=== PATIENT | female | born 1985 | race Caucasian/White ===

== ENCOUNTER 2017-02-25 10:24 | Emergency (ER) | payer MEDICAID ==
[2017-02-25 10:49] VITALS: BP 148/75
[2017-02-25] MEDS ORDERED: IBUPROFEN 800 MG TABLET PO ONE (11:09)
[2017-02-25] MEDS ORDERED: DIPHENHYDRAMINE HCL 25 MG CAPSULE PO ONE (11:09)
--- NOTE | 2017-02-25 11:24 | ER Document Report ---
HPI - HPI Patient complains to provider of: toe complaint Pain Level: 3 Context: Patient is a 31-year-old female who presents emergency department complaining of right big toe pain. Patient states that she had a blood pain 4 days ago and scratched the top layer of skin off. Admits to itching, pain clear drainage. Denies any surrounding redness or swelling. Has been taking Tylenol for pain relief. Otherwise denies any other medical problems. Denies any fevers or chills. - REPRODUCTIVE Reproductive: DENIES: : - DERM Skin Color: Normal Past Medical History - Social History Smoking Status: Unknown if Ever Smoked Family History: Reviewed & Not Pertinent Patient has suicidal ideation: No Patient has homicidal ideation: No - Past Medical History Cardiac Medical History: Reports: Hx Hypertension Pulmonary Medical History: Reports: Hx Pneumonia Endocrine Medical History: Reports: Hx Diabetes Mellitus Type 2 Renal/ Medical History: Denies: Hx Peritoneal Dialysis GI Medical History: Reports: Hx Gastroesophageal Reflux Disease Musculoskeltal Medical History: Reports Hx Arthritis Psychiatric Medical History: Reports: Hx Anxiety, Hx Bipolar Disorder, Hx Depression Past Surgical History: Reports: Hx Abdominal Surgery - tumor, hernia, Hx Cardiac Catheterization - AND ABLATION (UNSUCCESSFUL) 2006, Hx Section - x2, Hx Cholecystectomy, Hx Gastric Bypass Surgery - 2006, Hx Herniorrhaphy, Hx Tubal Ligation - Immunizations Hx Diphtheria, Pertussis, Tetanus Vaccination: Yes Vertical Provider Document - CONSTITUTIONAL Agree With Documented VS: Yes Exam Limitations: No Limitations General Appearance: WD/WN, No Apparent Distress - INFECTION CONTROL TRAVEL OUTSIDE OF THE [place] IN LAST 30 DAYS: No - RESPIRATORY O2 Sat by Pulse Oximetry: 100 - CARDIOVASCULAR Pulses: Normal: Dorsalis pedis - normal cap refill - MUSCULOSKELETAL/EXTREMETIES Musculoskeletal/Extremeties: MAEW, FROM, Non-Tender, No Edema - NEURO Level of Consciousness: Awake, Alert, Appropriate Motor/Sensory: No Motor Deficit, No Sensory Deficit - DERM Integumentary: Warm, Dry, No Rash Adult Front & Back Diagram: 1 - 2cm round scab on the top of the left toe without erythema, purulent drainage, induration Course - Re-evaluation Re-evalutation: 02/25/17 11:21 Is a 21-year-old who is hemodynamic stable, no distress afebrile. No evidence of cellulitis, abscess of the toe. Can treat with [id number] Motrin, Benadryl and Neosporin. Can follow-up with primary care. - Vital Signs Vital signs: Temp Pulse Resp BP Pulse Ox 98.5 F 86 18 148/75 H 100 02/25/17 10:48 02/25/17 10:48 02/25/17 10:48 02/25/17 10:48 02/25/17 10:48 Discharge - Discharge Clinical Impression: Bug bite Qualifiers: Encounter type: initial encounter Qualified Code(s): W57.XXXA - Bitten or stung by nonvenomous insect and other nonvenomous arthropods, initial encounter Condition: Good Disposition: HOME, SELF-CARE Instructions: Insect Bites ([facility]), Antihistamines ([facility]), Use of Over-The- Counter Ibuprofen ([facility]) Forms: Elevated Blood Pressure
== END 2017-02-25 11:51 | disposition home or self-care (01) ==
LOC: ER 10:24
DX: T14.8 Other injury of unspecified body region (principal); W57.XXXA Bitten or stung by nonvenomous insect and other nonvenomous arthropods, initial encounter; M79.674 Pain in right toe(s); E11.9 Type 2 diabetes mellitus without complications; I10 Essential (primary) hypertension
CPT/HCPCS: 99283; J3490 ×2

== ENCOUNTER 2017-05-19 12:24 | Emergency (ER) | payer MEDICAID ==
[2017-05-19 12:29] VITALS: BP 136/75
[2017-05-19] MEDS ORDERED: ALPRAZOLAM 0.25 MG TABLET PO ONE (12:37)
--- NOTE | 2017-05-19 12:46 | ER Document Report ---
ED Psych Disorder / Suicide - General Chief Complaint: Anxiety Stated Complaint: FAST HEART RATE,NAUSEA Time Seen by Provider: 05/19/17 12:37 Mode of Arrival: Ambulatory Information source: Patient TRAVEL OUTSIDE OF THE [place] IN LAST 30 DAYS: No - HPI Patient complains to provider of: Other Onset: This morning - pt states she is having a panic attack and is requesting xanax here as she is out of meds. She denies SI or HI - Related Data Allergies/Adverse Reactions: latex [Latex] Allergy (Severe, Verified 05/19/17 12:28) rash and swelling adhesive tape [Adhesive Tape] Allergy (Verified 05/19/17 12:28) rash and blister morphine [Morphine] Allergy (Verified 05/19/17 12:28) Past Medical History - General Information source: Patient - Social History Smoking Status: Current Every Day Smoker Cigarette use (# per day): Yes Chew tobacco use (# tins/day): No Smoking Education Provided: Yes Frequency of alcohol use: None Drug Abuse: None Family History: Reviewed & Not Pertinent - Past Medical History Cardiac Medical History: Reports: Hx Hypertension Pulmonary Medical History: Reports: Hx Pneumonia Endocrine Medical History: Reports: Hx Diabetes Mellitus Type 2 Renal/ Medical History: Denies: Hx Peritoneal Dialysis GI Medical History: Reports: Hx Gastroesophageal Reflux Disease Musculoskeltal Medical History: Reports Hx Arthritis Psychiatric Medical History: Reports: Hx Anxiety, Hx Bipolar Disorder, Hx Depression Past Surgical History: Reports: Hx Abdominal Surgery - tumor, hernia, Hx Cardiac Catheterization - AND ABLATION (UNSUCCESSFUL) 2006, Hx Section - x2, Hx Cholecystectomy, Hx Gastric Bypass Surgery - 2006, Hx Herniorrhaphy, Hx Tubal Ligation - Immunizations Hx Diphtheria, Pertussis, Tetanus Vaccination: Yes Review of Systems - Review of Systems Constitutional: No symptoms reported EENT: No symptoms reported Cardiovascular: No symptoms reported Respiratory: No symptoms reported Gastrointestinal: No symptoms reported Neurological/Psychological: See HPI, Anxiety -: Yes All other systems reviewed and negative Physical Exam - Vital signs Vitals: Temp Pulse Resp BP Pulse Ox 98.5 F 74 18 136/75 H 98 05/19/17 12:28 05/19/17 12:28 05/19/17 12:28 05/19/17 12:28 05/19/17 12:28 - General General appearance: Appears well In distress: None - HEENT Head: Normocephalic Pharynx: Normal Neck: Normal - Respiratory Respiratory status: No respiratory distress Breath sounds: Normal - Cardiovascular Rhythm: Regular Heart sounds: Normal auscultation - Abdominal Inspection: Normal Bowel sounds: Normal - Neurological Neuro grossly intact: Yes Cognition: Normal Orientation: AAOx4 - Psychological Associated symptoms: Normal affect, Anxious Course - Re-evaluation Re-evalutation: 05/19/17 12:41 pt felt better after xanax - will go home with friend - Vital Signs Vital signs: Temp Pulse Resp BP Pulse Ox 98.5 F 74 18 136/75 H 98 05/19/17 12:28 05/19/17 12:28 05/19/17 12:28 05/19/17 12:28 05/19/17 12:28 Discharge - Discharge Clinical Impression: Anxiety Condition: Stable Disposition: HOME, SELF-CARE Instructions: Anxiety ([facility]) Additional Instructions: rest, continue current meds, return if worse Referrals: SIXTO HURT MD [ACTIVE STAFF] - Follow up as needed
== END 2017-05-19 12:45 | disposition home or self-care (01) ==
LOC: ER 12:24
DX: F41.9 Anxiety disorder, unspecified (principal); R00.2 Palpitations; R11.0 Nausea; Z79.899 Other long term (current) drug therapy; F17.210 Nicotine dependence, cigarettes, uncomplicated
CPT/HCPCS: 99283; J3490

== ENCOUNTER 2017-06-16 00:06 | Emergency (ER) | payer MEDICAID, OTHER ==
--- NOTE | 2017-06-16 01:20 | ER Document Report ---
HPI - HPI Pain Level: Denies Notes: Pt with a h/o anxiety presents to the ED c/o needing her anxiety medication, xanax, because she cannot find her current script. The last time she took the medication was 2 days ago. Pt states that she has not been taking her medication as prescribed as there are days she needs it and others that she doesn't. She also does not take the prescribed amount of 1 tab BID prn anxiety according to how the scripts have been written historically. Pt states that she is not due for a refill for 1 more week. Pt sees Tammie Peck for her psych medication(s). Pt has no other concerns or complaints. No SI/HI. Denies any headache, fever, head injury, neck pain, changes in vision/speech/ mentation/hearing, URI, sore throat, chest pain, palpitations, syncope, cough, shortness of breath, wheeze, dyspnea, abdominal pain, nausea/vomiting/diarrhea, urinary retention, dysuria, hematuria, or rash. - ROS Notes: REVIEW OF SYSTEMS: CONSTITUTIONAL : Denies fever, chills, or sweats. Denies recent illness. EENT: Denies eye, ear, throat, or mouth pain or symptoms. Denies nasal or sinus congestion or discharge. Denies throat, tongue, or mouth swelling or difficulty swallowing. CARDIOVASCULAR: Denies chest pain. Denies palpitations or racing or irregular heart beat. Denies ankle edema. RESPIRATORY: Denies cough, cold, or chest congestion. Denies shortness of breath, difficulty breathing, or wheezing. GASTROINTESTINAL: Denies abdominal pain or distention. Denies nausea, vomiting , or diarrhea. Denies blood in vomitus, stools, or per rectum. Denies black, tarry stools. Denies constipation. GENITOURINARY: Denies difficulty urinating, painful urination, burning, frequency, blood in urine, or discharge. MUSCULOSKELETAL: Denies back or neck pain or stiffness. Denies joint pain or swelling. SKIN: Denies rash, lesions or sores. NEUROLOGICAL: Denies confusion or altered mental status. Denies passing out or loss of consciousness. Denies dizziness or lightheadedness. Denies headache. Denies weakness or paralysis or loss of use of either side. Denies problems with gait or speech. Denies sensory loss, numbness, or tingling. Psych: see hpi. ALL OTHER SYSTEMS REVIEWED AND NEGATIVE. Dictation was performed using [employer] voice recognition software - REPRODUCTIVE Reproductive: DENIES: : - DERM Skin Color: Normal, [place] Past Medical History - Social History Smoking Status: Never Smoker Family History: Reviewed & Not Pertinent - Past Medical History Cardiac Medical History: Reports: Hx Hypertension Pulmonary Medical History: Reports: Hx Pneumonia Endocrine Medical History: Reports: Hx Diabetes Mellitus Type 2 Renal/ Medical History: Denies: Hx Peritoneal Dialysis GI Medical History: Reports: Hx Gastroesophageal Reflux Disease Musculoskeltal Medical History: Reports Hx Arthritis Psychiatric Medical History: Reports: Hx Anxiety, Hx Bipolar Disorder, Hx Depression Past Surgical History: Reports: Hx Abdominal Surgery - tumor, hernia, Hx Cardiac Catheterization - AND ABLATION (UNSUCCESSFUL) 2006, Hx Section - x2, Hx Cholecystectomy, Hx Gastric Bypass Surgery - 2007, Hx Herniorrhaphy, Hx Tubal Ligation - Immunizations Hx Diphtheria, Pertussis, Tetanus Vaccination: Yes Vertical Provider Document - CONSTITUTIONAL Agree With Documented VS: Yes Notes: PHYSICAL EXAMINATION: GENERAL: Well-appearing, well-nourished and in no acute distress. Obese. HEAD: Atraumatic, normocephalic. EYES: Pupils equal round and reactive to light, extraocular movements intact, sclera anicteric, conjunctiva are normal. NECK: Normal range of motion, supple without lymphadenopathy LUNGS: Breath sounds clear to auscultation bilaterally and equal. No wheezes rales or rhonchi. HEART: Regular rate and rhythm without murmurs, rubs, gallops. Extremities: No cyanosis, clubbing, or edema b/l. Peripheral pulses 2+. Capillary refill less than 3 seconds. NEUROLOGICAL: Cranial nerves grossly intact. Normal speech, normal gait. Normal sensory, motor exams PSYCH: Normal mood, normal affect. SKIN: Warm, Dry, normal turgor, no rashes or lesions noted. - INFECTION CONTROL TRAVEL OUTSIDE OF THE [place] IN LAST 30 DAYS: No - RESPIRATORY O2 Sat by Pulse Oximetry: 96 Course - Re-evaluation Re-evalutation: 06/16/17 01:18 Patient is an afebrile, well-hydrated, 31-year-old female who presents the ED with anxiety. Vitals are stable. PE is otherwise unremarkable. Patient told me that she needs a refill in 1 week but according to the [facility], she is due for a refill on June 18. There is a pattern over the last few months that patient has needed to get her medication refilled a few days earlier each time. I have a suspicion that patient is not taking her medications as directed. I also feel that the patient should be on a once a day SSRI/SNRI so that she is not taking as much xanax as is being prescribed. Advised patient that scripts like these do not normally get filled by the ED. I will send her with a Rx for 2 tabs of her xanax that will get her until she can call her PCM tomorrow and see what they can/want to do. Pt has not needed the medication daily. No SI/ HI. Recheck with PCM in the next 1-2 days. Return to the ED with any worsening /concerning symptoms otherwise as reviewed in discharge. Patient is in agreement. - Vital Signs Vital signs: Temp Pulse Resp BP Pulse Ox 98.4 F 68 16 132/79 H 96 06/16/17 00:27 06/16/17 00:27 06/16/17 00:27 06/16/17 00:27 06/16/17 00:27 Discharge - Discharge Clinical Impression: Anxiety Condition: Stable Disposition: HOME, SELF-CARE Instructions: Anxiety ([facility]), Barbiturate Abuse ([facility]) Additional Instructions: Maintain adequate fluid intake Take medication as directed I strongly urge you to consider talking to your PCM about SSRI's and SNRI's as daily therapy and only using xanax on PRN basis. You are on a very high dose of Xanax and taking them inappropriately. You are also responsible for the care of your prescriptions and the ED may/may not continue to fill them if you lose or abuse your prescription. Call to discuss with your PCM tomorrow. Return to the ED with any worsening symptoms and/or development of fever, headache, chest pain, palpitations, syncope, shortness of breath, trouble breathing, abdominal pain, n/v/d, blood in stool/urine, numbness/tingling, suicidal/homicidil thoughts-ideations, or other worsening symptoms that are concerning to you. Prescriptions: Alprazolam 2 mg PO BID #2 tablet Forms: Elevated Blood Pressure Referrals: TAMMIE PECK PA-C [NO LOCAL MD] - Follow up tomorrow
[2017-06-16 01:42] VITALS: BP 129/83
== END 2017-06-16 01:42 | disposition home or self-care (01) ==
LOC: ER 00:06
DX: F41.9 Anxiety disorder, unspecified (principal); Z79.899 Other long term (current) drug therapy
CPT/HCPCS: 99283

== ENCOUNTER 2018-03-23 13:26 | Emergency (ER) | payer MEDICAID, OTHER ==
[2018-03-23 13:32] VITALS: BP 139/77
[2018-03-23] MEDS ORDERED: ONDANSETRON 4 MG TAB.RAPDIS SL ONE (13:41)
[2018-03-23 14:37] LABS: ABSOLUTE BASOPHILS # (AUTO) 0.1 10^3/uL (0.0-0.2); ABSOLUTE LYMPHOCYTES (AUTO) 2.3 10^3/uL (0.5-4.7); ABSOLUTE MONOCYTES (AUTO) 0.6 10^3/uL (0.1-1.4); ABSOLUTE NEUT (AUTO) 5.6 10^3/uL (1.7-8.2); BASOPHILS % (AUTO) 1.6 % (0-2); EOSINOPHILS % (AUTO) 0.5 % (0-6); MEAN CORPUSCULAR HEMOGLOBIN 19.6 pg (27.0-33.4); MEAN CORPUSCULAR HGB CONC 30.3 g/dL (32.0-36.0); MEAN CORPUSCULAR VOLUME 65 fl (80-97); MONOCYTES % (AUTO) 6.7 % (3-13); PLATELET COUNT 528 10^3/uL (150-450); RED BLOOD COUNT 4.01 10^6/uL (3.72-5.28); RED CELL DISTRIBUTION WIDTH 20.4 % (11.5-14.0); SEGMENTED NEUTROPHILS % (AUTO) 64.2 % (42-78); TOTAL CELLS COUNTED % (AUTO) 100 %; WHITE BLOOD COUNT 8.6 10^3/uL (4.0-10.5)
[2018-03-23 14:44] LABS: APPEARANCE,URINE CLEAR; BILIRUBIN,URINE NEGATIVE (NEGATIVE); COLOR,URINE STRAW; GLUCOSE, URINE NEGATIVE (NEGATIVE); KETONES,URINE NEGATIVE (NEGATIVE); LEUKOCYTE ESTERASE,URINE NEGATIVE (NEGATIVE); NITRITE,URINE NEGATIVE (NEGATIVE); PROTEIN,URINE NEGATIVE (NEGATIVE); URINE SPECIFIC GRAVITY 1.009; UROBILINOGEN,URINE NEGATIVE mg/dL (<2.0)
[2018-03-23 14:45] LABS: ALANINE AMINOTRANSFERASE 21 U/L (9-52); ALBUMIN 4.1 g/dL (3.5-5.0); ALKALINE PHOSPHATASE 113 U/L (38-126); ANION GAP 12 (5-19); ASPARTATE AMINO TRANSFERASE 22 U/L (14-36); BILIRUBIN,DIRECT 0.2 mg/dL (0.0-0.4); BILIRUBIN,TOTAL 0.3 mg/dL (0.2-1.3); BLOOD UREA NITROGEN 6 mg/dL (7-20); CALCIUM 9.2 mg/dL (8.4-10.2); CARBON DIOXIDE 26 mmol/L (22-30); CHLORIDE 108 mmol/L (98-107); GLUCOSE 91 mg/dL (75-110); LIPASE 113.3 U/L (23-300); POTASSIUM 4.3 mmol/L (3.6-5.0); SODIUM 145.5 mmol/L (137-145); TOTAL PROTEIN 7.4 g/dL (6.3-8.2)
[2018-03-23 14:49] LABS: HEMOGLOBIN 7.9 g/dL (12.0-15.5)
[2018-03-23 15:04] LABS: HYPOCHROMASIA SLIGHT; PLATELET COMMENT INCREASED; POLYCHROMASIA SLIGHT
--- NOTE | 2018-03-23 15:37 | ER Document Report ---
ED GI/ - General Chief Complaint: Abdominal Pain Stated Complaint: STOMACH PAIN Time Seen by Provider: 03/23/18 13:34 Mode of Arrival: Ambulatory Information source: Patient TRAVEL OUTSIDE OF THE [place] IN LAST 30 DAYS: No - HPI Patient complains to provider of: Diarrhea, Vomiting Onset: Other - 2 days ago Timing/Duration: Gradual Quality of pain: Achy, Cramping Severity at maximum: Mild Severity in ED: Mild Location: Epigastric Associated symptoms: Diarrhea, Nausea, Vomiting Exacerbated by: Denies Relieved by: Denies Similar symptoms previously: No Recently seen / treated by doctor: No Notes: 03/23/18 19:36 Patient is a 32-year-old female presenting to the emergency room complaining of 2 day history of nausea vomiting and diarrhea with crampy abdominal pain, generally right before she vomits, she denies a fever, no sick contacts, no abdominal pain at present time, no dysuria or hematuria, patient states she needs a school note that she has missed the last 2 days of school and is already starting to feel better - Related Data Allergies/Adverse Reactions: latex [Latex] Allergy (Severe, Verified 03/23/18 13:30) rash and swelling adhesive tape [Adhesive Tape] Allergy (Verified 03/23/18 13:30) rash and blister morphine [Morphine] Allergy (Verified 03/23/18 13:30) Past Medical History - General Information source: Patient - Social History Smoking Status: Current Every Day Smoker Chew tobacco use (# tins/day): No Frequency of alcohol use: None Drug Abuse: None Family History: Reviewed & Not Pertinent Patient has suicidal ideation: No Patient has homicidal ideation: No - Past Medical History Cardiac Medical History: Reports: Hx Hypertension Pulmonary Medical History: Reports: Hx Pneumonia Endocrine Medical History: Reports: Hx Diabetes Mellitus Type 2 Renal/ Medical History: Denies: Hx Peritoneal Dialysis GI Medical History: Reports: Hx Gastroesophageal Reflux Disease Musculoskeletal Medical History: Reports Hx Arthritis Psychiatric Medical History: Reports: Hx Anxiety, Hx Bipolar Disorder, Hx Depression Past Surgical History: Reports: Hx Abdominal Surgery - tumor, hernia, gastric bypass, Hx Cardiac Catheterization - AND ABLATION (UNSUCCESSFUL) 2006, Hx Section - x2, Hx Cholecystectomy, Hx Gastric Bypass Surgery - 2006, Hx Herniorrhaphy, Hx Tubal Ligation - Immunizations Hx Diphtheria, Pertussis, Tetanus Vaccination: Yes Review of Systems - Review of Systems Constitutional: No symptoms reported EENT: No symptoms reported Cardiovascular: No symptoms reported Respiratory: No symptoms reported Gastrointestinal: See HPI Genitourinary: No symptoms reported Female Genitourinary: No symptoms reported Musculoskeletal: No symptoms reported Skin: No symptoms reported Hematologic/Lymphatic: No symptoms reported Neurological/Psychological: No symptoms reported -: Yes All other systems reviewed and negative Physical Exam - Vital signs Vitals: Temp Pulse Resp BP Pulse Ox 98.8 F 78 14 139/77 H 99 03/23/18 13:29 03/23/18 13:29 03/23/18 13:29 03/23/18 13:29 03/23/18 13:29 Interpretation: Normal - General General appearance: Appears well, Alert - HEENT Head: Normocephalic, Atraumatic Eyes: Normal Pupils: PERRL - Respiratory Respiratory status: No respiratory distress Chest status: Nontender Breath sounds: Normal Chest palpation: Normal - Cardiovascular Rhythm: Regular Heart sounds: Normal auscultation Murmur: No - Abdominal Inspection: Normal Distension: No distension Bowel sounds: Normal Tenderness: Tender - epigastric Organomegaly: No organomegaly - Back Back: Normal, Nontender - Extremities General upper extremity: Normal inspection, Nontender, Normal color, Normal ROM , Normal temperature General lower extremity: Normal inspection, Nontender, Normal color, Normal ROM , Normal temperature, Normal weight bearing. No: Arabella's sign - Neurological Neuro grossly intact: Yes Cognition: Normal Orientation: AAOx4 [place] Coma Scale Eye Opening: Spontaneous [place] Coma Scale Verbal: Oriented [place] Coma Scale Motor: Obeys Commands [place] Coma Scale Total: 15 Speech: Normal Motor strength normal: LUE, RUE, LLE, RLE Sensory: Normal - Psychological Associated symptoms: Normal affect, Normal mood - Skin Skin Temperature: Warm Skin Moisture: Dry Skin Color: Normal Course - Re-evaluation Re-evalutation: 03/23/18 19:37 Patient reports feeling much better, appetite is back, labs were discussed at bedside including her hemoglobin is 7.9, she has a known history of anemia secondary to heavy vaginal bleeding, states she just finished her period 2 days ago, 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, patient was given instructions for follow-up and advised to return if symptoms worsen, patient acknowledges understanding and agreement with this plan - Vital Signs Vital signs: Temp Pulse Resp BP Pulse Ox 98.8 F 78 14 139/77 H 99 03/23/18 13:29 03/23/18 13:29 03/23/18 13:29 03/23/18 13:29 03/23/18 13:29 - Laboratory Result Diagrams: 03/23/18 14:02 03/23/18 14:02 Laboratory results interpreted by me: 03/23/18 03/23/18 14:02 14:02 Hgb 7.9 L Hct 26.0 L MCV 65 L MCH 19.6 L MCHC 30.3 L RDW 20.4 H Plt Count 528 H Sodium 145.5 H Chloride 108 H BUN 6 L Discharge - Discharge Clinical Impression: Viral gastroenteritis Condition: Stable Disposition: HOME, SELF-CARE Instructions: Abdominal Pain ([facility]), Vomiting ([facility]) Additional Instructions: Follow up with your primary care provider in one to 2 days. Return to the emergency room immediately if symptoms worsen or any additional concerns. Prescriptions: Ondansetron HCl [Zofran 4 mg Tablet] 1 - 2 tab PO Q4H PRN #10 tablet PRN Reason: Forms: Return to School Referrals: AMI GARCIA MD [Primary Care Provider] - Follow up as needed
== END 2018-03-23 15:38 | disposition home or self-care (01) ==
LOC: ER 13:26
DX: A08.4 Viral intestinal infection, unspecified (principal); R10.9 Unspecified abdominal pain; F17.200 Nicotine dependence, unspecified, uncomplicated; I10 Essential (primary) hypertension; E11.9 Type 2 diabetes mellitus without complications; Z98.84 Bariatric surgery status
CPT/HCPCS: 99284; 36415; 83690; 85025; 81025; 80053; 81001; S0119

== ENCOUNTER 2018-04-27 15:18 | Emergency (ER) | payer MEDICAID ==
--- NOTE | 2018-04-27 16:23 | ER Document Report ---
ED Medical Screen (RME) - General Chief Complaint: Dizziness Stated Complaint: DIZZINESS,WEAKESS Time Seen by Provider: 04/27/18 16:21 Mode of Arrival: Ambulatory Information source: Patient Notes: This is a 32-year-old female with a history of gastric bypass, iron deficiency anemia (followed by Dr. Quintana in the past) who presents to the emergency room with increasing fatigue, fainting spells. Patient states her last hemoglobin was 6.9 and was offered blood at that time (1 month ago) but she felt like she was okay and did not need blood at that time. Now her symptoms are worse. TRAVEL OUTSIDE OF THE [place] IN LAST 30 DAYS: No - Related Data Allergies/Adverse Reactions: latex [Latex] Allergy (Severe, Verified 04/27/18 15:19) rash and swelling adhesive tape [Adhesive Tape] Allergy (Verified 04/27/18 15:19) rash and blister morphine [Morphine] Allergy (Verified 04/27/18 15:19) Past Medical History - Social History Chew tobacco use (# tins/day): No Frequency of alcohol use: None Drug Abuse: None - Past Medical History Cardiac Medical History: Reports: Hx Hypertension Pulmonary Medical History: Reports: Hx Pneumonia Endocrine Medical History: Reports: Hx Diabetes Mellitus Type 2 Renal/ Medical History: Denies: Hx Peritoneal Dialysis GI Medical History: Reports: Hx Gastroesophageal Reflux Disease Musculoskeltal Medical History: Reports Hx Arthritis Psychiatric Medical History: Reports: Hx Anxiety, Hx Bipolar Disorder, Hx Depression Past Surgical History: Reports: Hx Abdominal Surgery - tumor, hernia, gastric bypass, Hx Cardiac Catheterization - AND ABLATION (UNSUCCESSFUL) 2006, Hx Section - x2, Hx Cholecystectomy, Hx Gastric Bypass Surgery - 2006, Hx Herniorrhaphy, Hx Tubal Ligation - Immunizations Hx Diphtheria, Pertussis, Tetanus Vaccination: Yes Physical Exam - Vital signs Vitals: Temp Pulse Resp BP Pulse Ox 99 F 76 18 138/70 H 100 04/27/18 15:26 04/27/18 15:04/27/18 15:04/27/18 15:04/27/18 15:26 Course - Vital Signs Vital signs: Temp Pulse Resp BP Pulse Ox 99 F 76 18 138/70 H 100 04/27/18 15:26 04/27/18 15:26 04/27/18 15:26 04/27/18 15:26 04/27/18 15:26 Doctor's Discharge - Discharge Referrals: AMI GARCIA MD [Primary Care Provider] - Follow up as needed
[2018-04-27 17:31] LABS: ABSOLUTE BASOPHILS # (AUTO) 0.2 10^3/uL (0.0-0.2); ABSOLUTE LYMPHOCYTES (AUTO) 4.3 10^3/uL (0.5-4.7); ABSOLUTE NEUT (AUTO) 6.8 10^3/uL (1.7-8.2); BASOPHILS % (AUTO) 1.5 % (0-2); EOSINOPHILS % (AUTO) 0.4 % (0-6); HEMATOCRIT 27.2 % (36.0-47.0); HEMOGLOBIN 8.2 g/dL (12.0-15.5); LYMPHOCYTES % (AUTO) 34.8 % (13-45); MEAN CORPUSCULAR HEMOGLOBIN 19.5 pg (27.0-33.4); MEAN CORPUSCULAR HGB CONC 30.2 g/dL (32.0-36.0); MEAN CORPUSCULAR VOLUME 65 fl (80-97); MONOCYTES % (AUTO) 8.1 % (3-13); PLATELET COUNT 504 10^3/uL (150-450); RED CELL DISTRIBUTION WIDTH 20.8 % (11.5-14.0); SEGMENTED NEUTROPHILS % (AUTO) 55.2 % (42-78); TOTAL CELLS COUNTED % (AUTO) 100 %; WHITE BLOOD COUNT 12.3 10^3/uL (4.0-10.5)
[2018-04-27 17:47] LABS: ALANINE AMINOTRANSFERASE 21 U/L (9-52); ALBUMIN 4.1 g/dL (3.5-5.0); ALKALINE PHOSPHATASE 104 U/L (38-126); ANION GAP 11 (5-19); ASPARTATE AMINO TRANSFERASE 23 U/L (14-36); BILIRUBIN,DIRECT 0.2 mg/dL (0.0-0.4); BILIRUBIN,TOTAL 0.2 mg/dL (0.2-1.3); BLOOD UREA NITROGEN 11 mg/dL (7-20); CALCIUM 9.1 mg/dL (8.4-10.2); CARBON DIOXIDE 24 mmol/L (22-30); CHLORIDE 106 mmol/L (98-107); GLUCOSE 78 mg/dL (75-110); POTASSIUM 4.6 mmol/L (3.6-5.0); SODIUM 141.4 mmol/L (137-145); TOTAL PROTEIN 7.4 g/dL (6.3-8.2)
[2018-04-27] MEDS ORDERED: NICOTINE 14 MG/24 HR PATCH.TD24 TD ONE (17:59)
[2018-04-27 18:12] LABS: ANISOCYTOSIS 2+; HYPOCHROMASIA 2+; OVALOCYTES SLIGHT; PLATELET COMMENT INCREASED; POIKILOCYTOSIS SLIGHT; TOXIC GRANULATION SLIGHT
[2018-04-27] MEDS ORDERED: DIPHENHYDRAMINE HCL 25 MG CAPSULE PO PRN (18:24)
[2018-04-27] MEDS ORDERED: NORMAL SALINE 250 ML IV PRN ×2 (18:24)
[2018-04-27] MEDS ORDERED: ACETAMINOPHEN 325 MG TABLET PO PRN (18:24)
--- NOTE | 2018-04-27 20:44 | ER Document Report ---
ED General - General Chief Complaint: Dizziness Stated Complaint: DIZZINESS,WEAKESS Time Seen by Provider: 04/27/18 16:21 Mode of Arrival: Ambulatory Information source: Patient, [facility] Records Notes: 32-year-old female with iron deficiency anemia(Secondary to gastric bypass surgery) , hypertension, type 2 diabetes, nonsustained V. tach, bipolar disorder presents with complaint of weakness, fatigue, lightheadedness. Patient states that she has become increasingly fatigued over the last week. She said her lightheadedness has been ongoing for approximately 3 days. She denies any syncopal episodes. She also states that she has become increasingly more short of breath with minimal exertion. Patient has had an associated headache that she describes as a mild aching headache that has been intermittent. She states that she was seen here recently and offered a blood transfusion but declined at that time. TRAVEL OUTSIDE OF THE [place] IN LAST 30 DAYS: No - HPI Onset: Last week Onset/Duration: Gradual, Persistent Quality of pain: Achy - Mild aching headache Severity: Mild Associated symptoms: Headache, Shortness of breath. denies: Chest pain, Productive cough, Fever, Nausea, Vomiting Exacerbated by: Walking Relieved by: Denies Similar symptoms previously: Yes Recently seen / treated by doctor: Yes - 03/23/18 - Related Data Allergies/Adverse Reactions: latex [Latex] Allergy (Severe, Verified 04/27/18 15:19) rash and swelling adhesive tape [Adhesive Tape] Allergy (Verified 04/27/18 15:19) rash and blister morphine [Morphine] Allergy (Verified 04/27/18 15:19) Past Medical History - General Information source: Patient - Social History Smoking Status: Current Every Day Smoker Chew tobacco use (# tins/day): No Frequency of alcohol use: None Drug Abuse: None Lives with: Family Family History: Reviewed & Not Pertinent Patient has suicidal ideation: No Patient has homicidal ideation: No - Past Medical History Cardiac Medical History: Reports: Hx Hypertension Pulmonary Medical History: Reports: Hx Pneumonia Endocrine Medical History: Reports: Hx Diabetes Mellitus Type 2 Renal/ Medical History: Denies: Hx Peritoneal Dialysis GI Medical History: Reports: Hx Gastroesophageal Reflux Disease Musculoskeletal Medical History: Reports Hx Arthritis Psychiatric Medical History: Reports: Hx Anxiety, Hx Bipolar Disorder, Hx Depression Past Surgical History: Reports: Hx Abdominal Surgery - tumor, hernia, gastric bypass, Hx Cardiac Catheterization - AND ABLATION (UNSUCCESSFUL) 2007, Hx Section - x2, Hx Cholecystectomy, Hx Gastric Bypass Surgery - 2007, Hx Herniorrhaphy, Hx Tubal Ligation - Immunizations Hx Diphtheria, Pertussis, Tetanus Vaccination: Yes Review of Systems - Review of Systems Notes: REVIEW OF SYSTEMS: CONSTITUTIONAL : Denies fever, chills, or sweats. Denies recent illness. Denies weight loss, recent hospitalizations. EENT: Denies visual changes, eye pain. Denies nasal or sinus congestion or discharge. Denies sore throat, oral lesions, difficulty swallowing. CARDIOVASCULAR: Denies chest pain. Denies palpitations. Denies lower extremity edema. RESPIRATORY: Denies cough, cold, or chest congestion. Denies wheezing. GASTROINTESTINAL: Denies abdominal pain or distention. Denies nausea, vomiting , or diarrhea. Denies blood in vomitus, stools, or per rectum. Denies black, tarry stools. Denies constipation. GENITOURINARY: Denies difficulty urinating, painful urination, frequency, blood in urine, or vaginal discharge. MUSCULOSKELETAL: Denies back or neck pain or stiffness. Denies joint pain or swelling. SKIN: Denies rash, lesions or sores. HEMATOLOGIC : Denies easy bruising or bleeding. LYMPHATIC: Denies swollen glands. NEUROLOGICAL: Denies confusion or altered mental status. Denies passing out or loss of consciousness. Denies weakness or paralysis. Denies problems difficulty with ambulation, slurred speech. Denies sensory loss, numbness, or tingling. Denies seizures. PSYCHIATRIC: Denies anxiety or stress. Denies depression, suicidal ideation, or homicidal ideation. Denies visual or auditory hallucinations. Physical Exam - Vital signs Vitals: Temp Pulse Resp BP Pulse Ox 99 F 76 18 138/70 H 100 04/27/18 15:26 04/27/18 15:26 04/27/18 15:26 04/27/18 15:26 04/27/18 15:26 - Notes Notes: PHYSICAL EXAMINATION: GENERAL: Well-appearing, well-nourished and in no acute distress. HEAD: Atraumatic, normocephalic. EYES: Pupils equal round and reactive to light, extraocular movements intact, pale conjunctival. ENT: Nares patent, oropharynx clear without exudates. Moist mucous membranes. NECK: Normal range of motion, supple without lymphadenopathy LUNGS: Breath sounds clear to auscultation bilaterally and equal. No wheezes rales or rhonchi. HEART: Regular rate and rhythm without murmurs ABDOMEN: Soft, nontender, nondistended abdomen. No guarding, no rebound. No masses appreciated. Female : deferred Musculoskeletal: Normal range of motion, no pitting or edema. No cyanosis. NEUROLOGICAL: Cranial nerves grossly intact. Normal speech, normal gait. Normal sensory, motor exams PSYCH: Normal mood, normal affect. SKIN: Pallor Course - Re-evaluation Re-evalutation: 04/27/18 20:53 Laboratory 04/27/18 04/27/18 04/27/18 16:43 16:43 16:43 WBC 12.3 H RBC 4.20 Hgb 8.2 L Hct 27.2 L MCV 65 L MCH 19.5 L MCHC 30.2 L RDW 20.8 H Plt Count 504 H Seg Neutrophils % 55.2 Lymphocytes % 34.8 Monocytes % 8.1 Eosinophils % 0.4 Basophils % 1.5 Absolute Neutrophils 6.8 Absolute Lymphocytes 4.3 Absolute Monocytes 1.0 Absolute Eosinophils 0.0 Absolute Basophils 0.2 Toxic Granulation SLIGHT Platelet Comment INCREASED Hypochromasia 2+ Poikilocytosis SLIGHT Anisocytosis 2+ Microcytosis 2+ Ovalocytes SLIGHT Sodium 141.4 Potassium 4.6 Chloride 106 Carbon Dioxide 24 Anion Gap 11 BUN 11 Creatinine 0.63 Est GFR ( Amer) > 60 Est GFR (Non-Af Amer) > 60 Glucose 78 Calcium 9.1 Total Bilirubin 0.2 Direct Bilirubin 0.2 Neonat Total Bilirubin Not Reportable Neonat Direct Bilirubin Not Reportable Neonat Indirect Bili Not Reportable AST 23 ALT 21 Alkaline Phosphatase 104 Total Protein 7.4 Albumin 4.1 Blood Type O POSITIVE Antibody Screen NEGATIVE Crossmatch See Detail 04/28/18 20:30 32-year-old female with secondary to gastric bypass surgery presents with complaints of fatigue, lightheadedness, shortness of breath with minimal exertion. She states she is supposed to undergo iron infusions but until recently had no insurance. He was seen in March 2018 where her hemoglobin was found to be 7.9. Patient was offered a blood transfusion at that time but declined because she was feeling well. Patient was seen by myself upon arrival. Vital signs were reviewed. Patient is afebrile, normotensive and not hypoxic. Patient does not appear toxic or dehydrated. They are in no acute distress. Previous medical records and nursing notes reviewed. Significant findings include a CBC that shows a hemoglobin of 8.2. CMP shows no electrolyte abnormalities, normal renal function and normal liver enzymes. Although the patient does not meet the cutoff of 8.0 because she is symptomatic and has required blood transfusions in the past we have decided to transfuse her 1 unit of PRBCs. She does have an upcoming appointment with her primary care physician so that she can obtain a new referral to Dr. Quintana who she was seen previously for her iron infusions. On reevaluation patient states that she is feeling better. Patient provided the opportunity to ask questions, and express concerns. Discharge instructions discussed. Patient is agreeable with discharge home. Return indications explained and discussed with the patient who displays understanding. Patient encouraged to return to the emergency department immediately with any concerns. 04/28/18 20:32 - Vital Signs Vital signs: Temp Pulse Resp BP Pulse Ox 98.0 F 74 26 H 124/61 97 04/27/18 19:50 04/27/18 22:02 04/27/18 22:32 04/27/18 22:32 04/27/18 22:32 - Laboratory Result Diagrams: 04/27/18 16:43 04/27/18 16:43 Laboratory results interpreted by me: 04/27/18 04/27/18 16:43 16:43 WBC 12.3 H Hgb 8.2 L Hct 27.2 L MCV 65 L MCH 19.5 L MCHC 30.2 L RDW 20.8 H Plt Count 504 H Crossmatch See Detail Discharge - Discharge Clinical Impression: Dizziness Iron deficiency anemia Qualifiers: Iron deficiency anemia type: other iron deficiency Qualified Code(s): D50.8 - Other iron deficiency anemias Dyspnea Qualifiers: Dyspnea type: shortness of breath Qualified Code(s): R06.02 - Shortness of breath Condition: Good Disposition: HOME, SELF-CARE Instructions: Anemia, Iron Deficiency ([facility]), Dizziness ([facility]) Additional Instructions: Follow up with your physician tomorrow for further care or return to the ED IMMEDIATELY if symptoms worsen or new concerns occur. If you cannot afford to follow up with your primary care physician a list of low cost clinics have been provided at the end of your discharge papers as well. Forms: Smoking Cessation Education, Elevated Blood Pressure Referrals: AMI GACRIA MD [Primary Care Provider] - Follow up as needed
[2018-04-27 22:50] VITALS: BP 124/61
== END 2018-04-27 23:00 | disposition home or self-care (01) ==
LOC: ER 15:18
DX: R42 Dizziness and giddiness (principal); R53.83 Other fatigue; D50.8 Other iron deficiency anemias; R06.02 Shortness of breath; F17.200 Nicotine dependence, unspecified, uncomplicated; I10 Essential (primary) hypertension; E11.9 Type 2 diabetes mellitus without complications; Z98.84 Bariatric surgery status; Z91.040 Latex allergy status; Z88.6 Allergy status to analgesic agent
CPT/HCPCS: 99284; 86900; 86901; 36415; 36430; 86850; 85025; 80053; 86920; P9016; J3490 ×3; J7050

== ENCOUNTER 2018-07-05 22:06 | Emergency (ER) | payer MEDICAID ==
--- NOTE | 2018-07-05 23:25 | ER Document Report ---
ED General - General Chief Complaint: Dizziness Stated Complaint: DIZZINESS Time Seen by Provider: 07/05/18 23:13 Notes: Patient is a 32-year-old female that comes to the emergency department for chief complaint of an episode of almost passing out prior to arrival. She states she was standing washing dishes when she suddenly became lightheaded with blurry vision and felt like she was going to pass out. She states she sat on the floor and afterwards the symptoms resolved. She states she has had this several times in the past. She has a known history of anemia, thought to be secondary to her gastric bypass, medical history also includes hypertension, type 2 diabetes, unspecified arrhythmia, she is on medications for mood, she is also on Xanax, propranolol. She was supposed to get iron infusions but has not , she has had blood transfusions in the past. She denies any current symptoms. She denies chest pain, palpitations, shortness of breath. TRAVEL OUTSIDE OF THE [place] IN LAST 30 DAYS: No - Related Data Allergies/Adverse Reactions: latex [Latex] Allergy (Severe, Verified 04/27/18 15:19) rash and swelling adhesive tape [Adhesive Tape] Allergy (Verified 04/27/18 15:19) rash and blister morphine [Morphine] Allergy (Verified 04/27/18 15:19) Past Medical History - General Information source: Patient - Social History Smoking Status: Never Smoker Drug Abuse: None Lives with: Family Family History: Reviewed & Not Pertinent - Past Medical History Cardiac Medical History: Reports: Hx Hypertension Pulmonary Medical History: Reports: Hx Pneumonia Endocrine Medical History: Reports: Hx Diabetes Mellitus Type 2 Renal/ Medical History: Denies: Hx Peritoneal Dialysis GI Medical History: Reports: Hx Gastroesophageal Reflux Disease Musculoskeletal Medical History: Reports Hx Arthritis Psychiatric Medical History: Reports: Hx Anxiety, Hx Bipolar Disorder, Hx Depression Past Surgical History: Reports: Hx Abdominal Surgery - tumor, hernia, gastric bypass, Hx Cardiac Catheterization - AND ABLATION (UNSUCCESSFUL) 2007, Hx Section - x2, Hx Cholecystectomy, Hx Gastric Bypass Surgery - 2007, Hx Herniorrhaphy, Hx Tubal Ligation - Immunizations Hx Diphtheria, Pertussis, Tetanus Vaccination: Yes Review of Systems - Review of Systems Constitutional: No symptoms reported EENT: No symptoms reported Cardiovascular: See HPI Respiratory: No symptoms reported Gastrointestinal: No symptoms reported Genitourinary: No symptoms reported Female Genitourinary: No symptoms reported Musculoskeletal: No symptoms reported Skin: No symptoms reported Hematologic/Lymphatic: No symptoms reported Neurological/Psychological: See HPI Physical Exam - Vital signs Vitals: Temp Pulse Resp BP Pulse Ox 98.3 F 72 18 124/75 100 07/05/18 22:44 07/05/18 22:44 07/05/18 22:44 07/05/18 22:44 07/05/18 22:44 - Notes Notes: GENERAL: Alert, interacts well. No acute distress. Obese. HEAD: Normocephalic, atraumatic. EYES: Pupils equal, round, and reactive to light. Extraocular movements intact. ENT: Oral mucosa moist, tongue midline. Oropharynx unremarkable. Airway patent. Nares patent, no nasal septal hematoma, TM's intact. NECK: Full range of motion. Supple. Trachea midline. LUNGS: Clear to auscultation bilaterally, no wheezes, rales, or rhonchi. No respiratory distress. HEART: Regular rate and rhythm. No murmur ABDOMEN: Soft, non-tender. Non-distended. Bowel sounds present in all 4 quadrants. GENITOURINARY: Deferred EXTREMITIES: Moves all 4 extremities spontaneously. No edema, normal radial and dorsalis pedis pulses bilaterally. No cyanosis. BACK: no cervical, thoracic, lumbar midline tenderness. No saddle anesthesia, normal distal neurovascular exam. NEUROLOGICAL: Alert and oriented x3. Normal speech. [cranial nerves II through XII grossly intact]. PSYCH: Normal affect, normal mood. SKIN: Warm, dry, normal turgor. No rashes or lesions noted. Course - Re-evaluation Re-evalutation: EKG showing sinus rhythm at a rate of 69, nonspecific intraventricular conduction delay, AK interval of 153, QTc of 437, no T wave inversions or ST segment changes no significant change from prior. Patient reports symptoms very suggestive of near syncope, she did not have chest pain, she did not feel palpitations, I do not suspect ventricular tachycardia as the cause of her symptoms. She does have anemia, however her hemoglobin is above 9. Vital signs unremarkable. On monitoring she does not have any concerning rhythm or rate. Chemistry unremarkable. Urine unremarkable. Discussed results with patient. Recommend she follow-up for iron infusion, discussed near syncope details, workup, recommendations, and follow-up. Discussed return precautions. Patient will be discharged at this time, patient states satisfaction and agreement with plan. - Vital Signs Vital signs: Temp Pulse Resp BP Pulse Ox 98.9 F 72 21 H 104/57 L 98 07/06/18 02:59 07/05/18 22:44 07/06/18 02:51 07/06/18 02:51 07/06/18 02:00 - Laboratory Result Diagrams: 07/06/18 00:15 07/06/18 00:15 Laboratory results interpreted by me: 07/06/18 00:15 Hgb 9.3 L Hct 30.0 L MCV 69 L MCH 21.2 L MCHC 31.0 L RDW 22.1 H Plt Count 500 H Basophils % 2.5 H Discharge - Discharge Clinical Impression: Near syncope Condition: Stable Disposition: HOME, SELF-CARE Additional Instructions: Your monitoring, workup, and evaluation do not indicate any concerning abnormality at this time. Recommendation is to follow-up with hematology for iron infusions, stay hydrated , and continue to respond appropriately in the event that you almost pass out ( lie down, elevate legs, etc.). See additional details below. Return for any concerning or worsening symptoms. Syncope (fainting or near-fainting) can occur from many different health problems. Or it can be a simple fainting spell requiring no treatment. It is safe for you to go home, but further evaluation will likely be necessary. Your work-up may include tests for internal bleeding, heart disease, medication problems, etc. Tests are not always required, however, depending on the nature of your problem. The warning signs of an impending faint include: dizziness, lightheadedness , nausea, hot flashes, tingling, and weakness. If this happens, lay down and put your feet up, then wait until all of these symptoms have passed before standing up again. If these episodes become recurrent, or if you develop chest pain, heart palpitations, mental confusion, blurred vision, or headache, then you should call the physician, or go to the emergency room. Referrals: AMI GARCIA MD [Primary Care Provider] - Follow up as needed
[2018-07-06 00:38] LABS: ABSOLUTE BASOPHILS # (AUTO) 0.2 10^3/uL (0.0-0.2); ABSOLUTE LYMPHOCYTES (AUTO) 2.5 10^3/uL (0.5-4.7); ABSOLUTE MONOCYTES (AUTO) 0.7 10^3/uL (0.1-1.4); ABSOLUTE NEUT (AUTO) 5.3 10^3/uL (1.7-8.2); BASOPHILS % (AUTO) 2.5 % (0-2); EOSINOPHILS % (AUTO) 0.5 % (0-6); HEMOGLOBIN 9.3 g/dL (12.0-15.5); LYMPHOCYTES % (AUTO) 29.1 % (13-45); MEAN CORPUSCULAR HEMOGLOBIN 21.2 pg (27.0-33.4); MEAN CORPUSCULAR VOLUME 69 fl (80-97); MONOCYTES % (AUTO) 7.9 % (3-13); PLATELET COUNT 500 10^3/uL (150-450); RED BLOOD COUNT 4.37 10^6/uL (3.72-5.28); RED CELL DISTRIBUTION WIDTH 22.1 % (11.5-14.0); TOTAL CELLS COUNTED % (AUTO) 100 %; WHITE BLOOD COUNT 8.7 10^3/uL (4.0-10.5)
[2018-07-06 00:51] LABS: ANION GAP 11 (5-19); BLOOD UREA NITROGEN 9 mg/dL (7-20); CALCIUM 9.2 mg/dL (8.4-10.2); CARBON DIOXIDE 26 mmol/L (22-30); CHLORIDE 103 mmol/L (98-107); GLUCOSE 100 mg/dL (75-110); POTASSIUM 4.4 mmol/L (3.6-5.0); SODIUM 140.4 mmol/L (137-145)
[2018-07-06 01:59] LABS: APPEARANCE,URINE SLIGHTLY-CLOUDY; BILIRUBIN,URINE NEGATIVE (NEGATIVE); COLOR,URINE YELLOW; GLUCOSE, URINE NEGATIVE (NEGATIVE); KETONES,URINE NEGATIVE (NEGATIVE); LEUKOCYTE ESTERASE,URINE NEGATIVE (NEGATIVE); NITRITE,URINE NEGATIVE (NEGATIVE); PROTEIN,URINE NEGATIVE (NEGATIVE); URINE SPECIFIC GRAVITY 1.013; UROBILINOGEN,URINE NEGATIVE mg/dL (<2.0)
[2018-07-06 02:58] VITALS: BP 104/57
--- NOTE | 2018-07-06 08:19 | EKG REPORT ---
SEVERITY:- ABNORMAL ECG - SINUS RHYTHM IVCD- NON SPECIFIC : Confirmed by: Aleshia Dawson MD 06-Jul-2018 08:18:37
== END 2018-07-06 03:01 | disposition home or self-care (01) ==
LOC: ER 22:06
DX: R42 Dizziness and giddiness (principal); D64.9 Anemia, unspecified; Z98.84 Bariatric surgery status; H53.8 Other visual disturbances; I10 Essential (primary) hypertension; E11.9 Type 2 diabetes mellitus without complications; Z79.899 Other long term (current) drug therapy
CPT/HCPCS: 36415; 80048; 81001; 81025; 85025; 93005; 93010; 99284

== ENCOUNTER → 2018-10-19 | Outpatient (CLI) | payer MEDICAID ==
--- NOTE | 2018-10-19 10:20 | RADIOLOGY REPORT (SQ) ---
EXAM DESCRIPTION: U/S ABDOMEN COMPLETE W/DOPPLER COMPLETED DATE/TIME: 10/19/2018 9:39 am REASON FOR STUDY: VENTRAL HERNIA W/O OBSTRUCTION OR GANGRENE (K43.9) K43.9 VENTRAL HERNIA WITHOUT O BSTRUCTION OR GANGRENE COMPARISON: CT abdomen pelvis dated 06/29/2015 TECHNIQUE: Limited Static and real time gonzalez scale imaging performed of the 4 abdominal quadrants an d the midline. LIMITATIONS: None. FINDINGS: ASCITES: None identified. OTHER: No evidence of ventral hernias demonstrated by ultrasound. Review of a CT done in June demonstrates a large right lateral ventricle hernia containing omental fat and small bowel. IMPRESSION: Negative ultrasound. Review of prior CT done on June 20 demonstrates a large right ventral hernia just inferior and lateral to the umbilicus. TECHNICAL DOCUMENTATION: JOB ID: [id number] [employer]- All Rights Reserved Reading location - IP/workstation name: [email or web address]
== END ==
LOC: RAD 08:10
PROVIDERS: ATTEND Family Medicine
DX: K43.9 Ventral hernia without obstruction or gangrene (principal)
CPT/HCPCS: 76700; 93976

== ENCOUNTER → 2019-01-26 | Outpatient (CLI) | payer MEDICAID | LOC: OD 14:28 | PROVIDERS: ATTEND Internal Medicine Cardiovascular Disease | DX: N91.2 Amenorrhea, unspecified (principal) | CPT/HCPCS: 36415; 84703 ==

== ENCOUNTER → 2019-04-11 | Outpatient (CLI) | payer MEDICAID ==
[2019-04-11 11:22] LABS: ALBUMIN 3.9 g/dL (3.5-5.0); ALKALINE PHOSPHATASE 93 U/L (38-126); ASPARTATE AMINO TRANSFERASE 27 U/L (14-36); BILIRUBIN,DIRECT 0.2 mg/dL (0.0-0.4); BILIRUBIN,TOTAL 0.2 mg/dL (0.2-1.3); CHOLESTEROL 121.34 mg/dL (0-200); TOTAL PROTEIN 6.3 g/dL (6.3-8.2); TRIGLYCERIDES 144 mg/dL (<150)
[2019-04-11 11:33] LABS: DIRECT LDL 64 mg/dL (<100)
== END ==
LOC: LAB 10:40
PROVIDERS: ATTEND Internal Medicine Cardiovascular Disease
DX: E78.1 Pure hyperglyceridemia (principal); R94.5 Abnormal results of liver function studies; Z79.899 Other long term (current) drug therapy
CPT/HCPCS: 36415; 80061; 80076

== ENCOUNTER → 2019-04-14 | Outpatient (CLI) | payer MEDICAID ==
[2019-04-14 12:33] LABS: HEMOGLOBIN 14.1 g/dL (12.0-15.5); MEAN CORPUSCULAR HEMOGLOBIN 30.4 pg (27.0-33.4); MEAN CORPUSCULAR HGB CONC 33.6 g/dL (32.0-36.0); MEAN CORPUSCULAR VOLUME 90 fl (80-97); PLATELET COUNT 296 10^3/uL (150-450); RED BLOOD COUNT 4.65 10^6/uL (3.72-5.28); RED CELL DISTRIBUTION WIDTH 13.7 % (11.5-14.0); WHITE BLOOD COUNT 12.2 10^3/uL (4.0-10.5)
[2019-04-14 12:40] LABS: INTERNATIONAL RATION (INR) 0.98
[2019-04-14 12:41] LABS: PARTIAL THROMBOPLASTIN TIME 29.5 SEC (23.5-35.8)
[2019-04-14 12:57] LABS: ANION GAP 8 (5-19); BLOOD UREA NITROGEN 11 mg/dL (7-20); CALCIUM 9.4 mg/dL (8.4-10.2); CARBON DIOXIDE 26 mmol/L (22-30); CHLORIDE 105 mmol/L (98-107); GLUCOSE 81 mg/dL (75-110); POTASSIUM 4.5 mmol/L (3.6-5.0)
== END ==
LOC: OD 11:45
PROVIDERS: ATTEND Internal Medicine Cardiovascular Disease
DX: Z01.810 Encounter for preprocedural cardiovascular examination (principal); R07.89 Other chest pain; Z79.01 Long term (current) use of anticoagulants
CPT/HCPCS: 36415; 80048; 85027; 85610; 85730

== ENCOUNTER 2019-05-13 12:37 | Emergency (ER) | payer MEDICAID ==
[2019-05-13] MEDS ORDERED: ACETAMINOPHEN 325 MG TABLET PO ONE (13:44)
[2019-05-13] MEDS ORDERED: IBUPROFEN 600 MG TABLET PO ONE (13:45)
--- NOTE | 2019-05-13 13:47 | ER Document Report ---
HPI - HPI Patient complains to provider of: L great toe injury 3 days ago Time Seen by Provider: 05/13/19 13:19 Pain Level: 3 Context: Healthy 33-year-old female percents to the emergency department for a left great toe injury sustained on Wednesday. Patient states that she was carrying a layer of kittens and she stepped over a fence with her left foot and she caught the fence with her right foot and fell and jammed. Patient states that she can bear weight on it but she does have to limp. Patient is able to move her toe at the MTP but cannot bend it otherwise. She complains of bruising and swelling. She denies any numbness tingling or paralysis of the toe. No other complaints - REPRODUCTIVE Reproductive: DENIES: : Past Medical History - Social History Smoking Status: Unknown if Ever Smoked Family History: Reviewed & Not Pertinent - Past Medical History Cardiac Medical History: Reports: Hx Hypertension Pulmonary Medical History: Reports: Hx Pneumonia Endocrine Medical History: Reports: Hx Diabetes Mellitus Type 2 Renal/ Medical History: Denies: Hx Peritoneal Dialysis GI Medical History: Reports: Hx Gastroesophageal Reflux Disease Musculoskeletal Medical History: Reports Hx Arthritis Psychiatric Medical History: Reports: Hx Anxiety, Hx Bipolar Disorder, Hx Depression Past Surgical History: Reports: Hx Abdominal Surgery - tumor, hernia, gastric bypass, Hx Cardiac Catheterization - AND ABLATION (UNSUCCESSFUL) 2006, Hx Section - x2, Hx Cholecystectomy, Hx Gastric Bypass Surgery - 2007, Hx Herniorrhaphy, Hx Tubal Ligation - Immunizations Hx Diphtheria, Pertussis, Tetanus Vaccination: Yes Vertical Provider Document - CONSTITUTIONAL Notes: PHYSICAL EXAMINATION: Reviewed vital signs and charting by RN GENERAL: Alert, interacts well. No acute distress. HEAD: Normocephalic, atraumatic. EYES: Pupils equal and round. Extraocular movements intact. ENT: Oral mucosa moist, tongue midline. NECK: Full range of motion. Trachea midline. EXTREMITIES: Moves all 4 extremities spontaneously. Edema of the left great toe, ecchymosis from just proximal to the MTP covering her entire left right toe, tenderness to palpation over the DIP and over the MTP laterally PSYCH: Normal affect, normal mood. SKIN: Warm, dry, normal turgor. No rashes or lesions noted. - INFECTION CONTROL TRAVEL OUTSIDE OF THE [place] IN LAST 30 DAYS: No Course - Vital Signs Vital signs: Temp Pulse Resp BP Pulse Ox 98.6 F 59 L 18 134/73 H 97 05/13/19 12:43 05/13/19 12:43 05/13/19 12:43 05/13/19 12:43 05/13/19 12:43 Discharge - Discharge Clinical Impression: Fracture of left great toe Qualifiers: Encounter type: initial encounter Fracture type: closed Phalanx: proximal Fracture alignment: displaced Qualified Code(s): S92.412A - Displaced fracture of proximal phalanx of left great toe, initial encounter for closed fracture Condition: Good Disposition: HOME, SELF-CARE Additional Instructions: You were seen in the emergency department this afternoon for a broken left big toe. It was minimally displaced but will not require orthopedic follow-up urgently. You can next 5 to 7 days. We have placed in a postop shoe, anu tape, and given crutches. Please continue to wear the shoe whenever you are ambulating, ice it for 20 minutes at a time every couple of hours, take ibuprofen 600 mg every 6 hours with food and/or milk. Also, you can leave it elevated when you are relaxing at home above the level of the heart to help reduce swelling. If you lose use of the toe, you get paralysis of your foot, your toe starts to turn black and necrotic, or you have any other concerning symptoms please immediately return to the emergency department. Referrals: JANINE LIMON MD [Primary Care Provider] - Follow up as needed
--- NOTE | 2019-05-13 14:16 | RADIOLOGY REPORT (SQ) ---
EXAM DESCRIPTION: FOOT LEFT COMPLETE COMPLETED DATE/TIME: 05/13/2019 2:03 pm REASON FOR STUDY: Injury L great toe COMPARISON: 01/22/2016 NUMBER OF VIEWS: Three views. TECHNIQUE: AP, lateral and oblique radiographic images acquired of the left foot. LIMITATIONS: None. FINDINGS: MINERALIZATION: Normal. BONES: There is a minimally displaced corner type fracture of the medial base of the 1st proximal pha lanx. JOINTS: No effusions. SOFT TISSUES: No soft tissue swelling. No foreign body. OTHER: No other significant finding. IMPRESSION: There is a minimally displaced corner type fracture of the medial base of the 1st proxim al phalanx. TECHNICAL DOCUMENTATION: JOB ID: [id number] [employer]- All Rights Reserved Reading location - IP/workstation name: [email or web address]
[2019-05-13 14:41] VITALS: BP 128/72
== END 2019-05-13 14:28 | disposition home or self-care (01) ==
LOC: ER 12:37
DX: S92.412A Displaced fracture of proximal phalanx of left great toe, initial encounter for closed fracture (principal); W01.0XXA Fall on same level from slipping, tripping and stumbling without subsequent striking against object, initial encounter; E11.9 Type 2 diabetes mellitus without complications; I10 Essential (primary) hypertension; Z98.84 Bariatric surgery status
CPT/HCPCS: 73630; J3490 ×2; 99283